=== PATIENT | female | born 1990 | race African-American/Black ===

== ENCOUNTER 2017-04-16 18:37 | Emergency (ER) | payer OTHER ==
[2017-04-16 18:56] VITALS: BMI 24.7
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
[2017-04-16] MEDS ORDERED: NORFLEX INJ ONE (20:25)
[2017-04-16] MEDS ORDERED: TORADOL 60 MG VIAL ONE (20:25)
[2017-04-16] MEDS: TORADOL 60 MG VIAL IVP ONE (20:33)
[2017-04-16] MEDS: NORFLEX INJ IM ONE (20:33)
[2017-04-16 21:16] VITALS: BP 122/72
== END 2017-04-16 21:15 | disposition home or self-care (01) ==
LOC: ER 18:37
DX: Z04.3 Encounter for examination and observation following other accident (principal); V89.2XXA Person injured in unspecified motor-vehicle accident, traffic, initial encounter
CPT/HCPCS: 72125; 72131; 96372; 99282; 99283; J1885; J2360